=== PATIENT | male | born 1965 | race Caucasian/White ===

== ENCOUNTER 2018-08-08 16:29 | Emergency (ER) | payer OTHER ==
[~2018-08-08] VITALS: Ht 182.9 cm; Wt 131.5 kg
[2018-08-08 17:12] LABS: CALCIUM 8.4 mg/dL (8.5-10.1); POTASSIUM 3.6 mmol/L (3.5-5.1)
[2018-08-08] MEDS ORDERED: LISINOPRIL10 MG PO (18:07)
[2018-08-08 18:27] VITALS: BP 170/70
--- NOTE | 2018-08-09 13:03 | EKG ---
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 Service Technician: Maynor FINK : 1965 Requested By: Kathy Escalante Order Number: [id number] MD: Barry Carbajal Measurements Intervals [place] Rate: 78 P: 11 MN: 182 QRS: -36 QRSD: 100 T: 5 QT: 381 QTc: 434 Interpretive Statements Sinus rhythm Probable left atrial enlargement Low voltage, precordial leads Abnormal R-wave progression, early transition Left ventricular hypertrophy No previous ECG available for comparison Electronically Signed On 08-09-2018 13:03:29 CDT by Barry Carbajal [email or web address] <ELECTRONICALLY SIGNED> By: Barry Carbajal MD, [facility] 08/09/18 1303 182 1820 Barry Carbajal MD, [facility] /EPI
== END 2018-08-08 18:32 | disposition home or self-care (01) ==
LOC: M.ERS 16:29
PROVIDERS: Nurse Practitioner Family
DX: I10 Essential (primary) hypertension (principal); E11.9 Type 2 diabetes mellitus without complications; F17.210 Nicotine dependence, cigarettes, uncomplicated; Z88.5 Allergy status to narcotic agent; Z88.0 Allergy status to penicillin; Z88.8 Allergy status to other drugs, medicaments and biological substances

== ENCOUNTER 2018-11-29 14:57 | Inpatient (IN) | payer OTHER ==
[~2018-11-29] VITALS: Ht 182.9 cm; Wt 124.6 kg
[~2018-11-29 14:57] MED LIST: LISINOPRIL10 MG PO
[2018-11-29 15:00] VITALS: BP 152/96
[2018-11-29 15:34] LABS: ABSOLUTE BASOPHILS 0.1 thou/uL (0.0-0.2); ABSOLUTE EOSINOPHILS 0.2 thou/uL (0.0-0.7); ABSOLUTE LYMPHOCYTES 1.5 thou/uL (0.8-5.3); ABSOLUTE MONOCYTES 0.8 thou/uL (0.0-1.2); EOSINOPHILS 1.7 %; HEMATOCRIT 45.4 % (42.0-52.0); HEMOGLOBIN 15.7 gm/dL (14.0-18.0); LYMPHOCYTES 16.1 %; MCH 30.5 pg (26.0-34.0); MCHC 34.5 g/dL (28.0-37.0); MCV 88.4 fL (80.0-100.0); MONOCYTES 8.5 %; MPV 7.1 fl. (7.2-11.1); NUCLEATED RBCS 0 /100WBC; PLATELET COUNT* 226 thou/uL (150-400); POLYS 72.7 %; RBC 5.13 mil/uL (4.50-6.00); RDW-CV 13.9 % (10.5-14.5); WBC 9.6 thou/uL (4.0-11.0)
[2018-11-29 15:42] LABS: ANION GAP 7 mmol/L (7-16); BUN 11 mg/dL (7-18); CALCIUM 8.9 mg/dL (8.5-10.1); CHLORIDE 101 mmol/L (98-107); CO2 30 mmol/L (21-32); GLUCOSE 141 mg/dL (70-99); SODIUM 138 mmol/L (136-145)
[2018-11-29 15:46] LABS: INR 0.9; PROTIME 9.5 Seconds (9.20-11.50)
[2018-11-29 15:50] LABS: BE 2.2 mmol/L (-2 to +3); HCO3 27.4 mmol/L (22.0-26.0); PCO2 44.3 mmHg (35.0-45.0); PO2 105.3 mmHg (75.0-100.0); pH 7.409 (7.340-7.450)
[2018-11-29 15:53] LABS: ALBUMIN 3.5 g/dL (3.4-5.0); ALKALINE PHOSPHATASE 90 U/L (46-116); NT-PRO BRAIN NAT PEPTIDE 124 pg/mL (<300); PHOSPHORUS* 2.6 mg/dL (2.5-4.9); SGOT 11 U/L (15-37); SGPT 20 U/L (30-65); TOTAL BILIRUBIN 0.6 mg/dL (<0.1-1.0); TOTAL PROTEIN 7.2 g/dL (6.4-8.2); TROPONIN-I LEVEL <0.06 ng/mL (<0.06)
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
[2018-11-29 16:20] LABS: URINE BILIRUBIN NEGATIVE (Negative); URINE BLOOD NEGATIVE (Negative); URINE CLARITY CLEAR; URINE COLOR YELLOW; URINE GLUCOSE-RANDOM NEGATIVE (Negative); URINE KETONES NEGATIVE (Negative); URINE LEUKOCYTES-REFLEX NEGATIVE (Negative); URINE NITRITE-REFLEX NEGATIVE (Negative); URINE PROTEIN 1+ (Negative); URINE SPECIFIC GRAVITY 1.015 (1.005-1.030); URINE UROBILINOGEN 0.2 E.U./dl (0.2-1.0)
[2018-11-29 16:45] LABS: AMP/METHAMP Negative (Negative); BARBITURATES Negative (Negative); BENZODIAZEPINES Negative (Negative); COCAINE Negative (Negative); METHADONE Negative (Negative); OPIATES Negative (Negative); PCP Negative (Negative); THC Negative (Negative)
[2018-11-29 16:46] LABS: ESR (SEDRATE) 22 mm/hr (0-20)
--- NOTE | 2018-11-29 17:51 | NUR ---
ATTEMPTED IV STARTS X 6 IN TOTAL BY ER STAFF UNABLE TO FIND ADEQUATE IV ACCESS DR RODRIGUEZ TO ATTEMPT CENTRAL LINE PLACEMENT.
[2018-11-29 21:30] VITALS: BP 157/83
[2018-11-30] VITALS: BP 154/69
[2018-11-30 04:00] VITALS: BP 146/66
--- NOTE | 2018-11-30 05:27 | NUR ---
PT TO FLOOR APROX 2200. SEE MAR. SEE CHARTING. FALL PRECATUIONS IN PLACE. HOURLY ROUNDING FOR SAFETY.
[2018-11-30 07:30] VITALS: BP 134/73
--- NOTE | 2018-11-30 11:16 | NUR ---
MET WITH PT AND ROOMMATE/DAKSHA TO DISCUSS HOME SITUATION/DC PLANNING. PT LIVES WITH DAKSHA AND HER GIRLFRIEND AND HIS SON. PT IS INDEPENDENT AND ACTIVE. USES NO EQUIPMENT. 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 DOES NOT HAVE A PCP. GAVE PT COMMUNITY RESOURCES AND SAFETY NET CLINIC INFO. HE PLANS TO RETURN HOME AT DC. PT DOES NOT HAVE DPOA, GAVE ED AND INFO FOR THAT ALSO. WILL FOLLOW
[2018-11-30 11:26] VITALS: BP 156/79
[2018-11-30 12:40] LABS: BE -0.4 mmol/L (-2 to +3); PCO2 44.2 mmHg (35.0-45.0); PO2 72.9 mmHg (75.0-100.0); pH 7.371 (7.340-7.450)
[2018-11-30 12:49] LABS: ABSOLUTE BASOPHILS 0.1 thou/uL (0.0-0.2); ABSOLUTE EOSINOPHILS 0.1 thou/uL (0.0-0.7); ABSOLUTE LYMPHOCYTES 1.3 thou/uL (0.8-5.3); ABSOLUTE MONOCYTES 0.6 thou/uL (0.0-1.2); ABSOLUTE NEUTROPHILS 6.1 thou/uL (1.6-8.1); BASOPHILS 0.9 %; EOSINOPHILS 1.5 %; HEMOGLOBIN 14.1 gm/dL (14.0-18.0); LYMPHOCYTES 16.2 %; MCH 30.3 pg (26.0-34.0); MCHC 34.4 g/dL (28.0-37.0); MCV 88.1 fL (80.0-100.0); MONOCYTES 7.8 %; MPV 7.6 fl. (7.2-11.1); NUCLEATED RBCS 0 /100WBC; PLATELET COUNT* 217 thou/uL (150-400); POLYS 73.6 %; RBC 4.66 mil/uL (4.50-6.00); RDW-CV 13.8 % (10.5-14.5); WBC 8.2 thou/uL (4.0-11.0)
[2018-11-30 15:36] VITALS: BP 140/73
--- NOTE | 2018-11-30 17:21 | 2DMMODE ---
[place] [address] 2 D/M-MODE ECHOCARDIOGRAM Name: YSABEL MACHUCA Room: [address] IN [facility]#: [id number] Admission: 11/29/18 Attend Phys: Stepan Fontana Discharge: Date of : 69 Date of Service: 11/30/18 1721 Report #: [id number] THIS REPORT FOR: //name// APPROVED REPORT Study performed: 11/30/2018 15:06:32 EXAM: Comprehensive 2D, Doppler, and color-flow Echocardiogram Patient Location: In-Patient Room #: 230 Status: routine BSA: 2.52 HR: 72 bpm BP: 156/79 mmHg Rhythm: NSR Other Information Study Quality: Good Indications Dyspnea Chest Pain 2D Dimensions IVSd: 12.49 (7-11mm) LVOT Diam: 22.17 (18-24mm) LVDd: 47.25 mm PWd: 14.23 (7-11mm) Ascending Ao: 34.06 (22-36mm) LVDs: 33.51 (25-40mm) Aortic Root: 36.76 mm Volumes Left Atrial Volume (Systole) LA ESV Index: 23.90 mL/m2 Aortic Valve AoV Peak Nelson.: 1.47 m/s AO Peak Gr.: 8.60 mmHg LVOT Max P.71 mmHg AO Mean Gr.: 4.33 mmHg LVOT Mean P.36 mmHg LVOT Max V: 1.09 m/s AO V2 VTI: 27.98 cm LVOT Mean V: 0.71 m/s RAJANI (VTI): 3.34 cm2 LVOT V1 VTI: 24.23 cm Mitral Valve E/A Ratio: 0.97 MV Decel. Time: 221.25 [place] [address] 2 D/M-MODE ECHOCARDIOGRAM Name: YSABEL MACHUCA Room: [address]#: [id number] Admission: 11/29/18 Attend Phys: Stepan Fontana Discharge: Date of : 69 Date of Service: 11/30/18 1721 Report #: [id number] MV E Max Nelson.: 0.79 m/s MV PHT: 64.16 ms MVA (PHT): 3.43 cm2 TDI E/Lateral E': 6.58 E/Medial E': 8.78 Medial E' Nelson.: 0.09 m/s Lateral E' Nelson.: 0.12 m/s Pulmonary Valve PV Peak Nelson.: 1.09 m/s PV Peak Gr.: 4.73 mmHg Left Ventricle The left ventricle is normal size. There is normal LV segmental wall motion. Mild concentric left ventricular hypertrophy. Left ventricular systolic function is normal. The left ventricular ejection fraction is within the normal range. LVEF is 55-60%. Grade I - abnormal relaxation pattern. Right Ventricle The right ventricle is normal size. The right ventricular systolic function is normal. Atria The left atrium size is normal. The right atrium size is normal. Aortic Valve The aortic valve is normal in structure. No aortic regurgitation is present. There is no aortic valvular stenosis. Mitral Valve The mitral valve is normal in structure. Trace mitral regurgitation. No evidence of mitral valve stenosis. Tricuspid Valve The tricuspid valve is normal in structure. Unable to assess PA pressure. Trace tricuspid regurgitation. Pulmonic Valve The pulmonary valve is normal in structure. There is no pulmonic valvular regurgitation. Great Vessels The aortic root is normal in size. IVC is normal in size and collapses >50% [place] [address] 2 D/M-MODE ECHOCARDIOGRAM Name: BRIGETTEYSABEL Mcguire Room: [address]#: [id number] Admission: 11/29/18 Attend Phys: Stepan Fontana Discharge: Date of : 69 Date of Service: 11/30/18 1721 Report #: [id number] Pericardium There is no pericardial effusion. <Conclusion> The left ventricle is normal size. Mild concentric left ventricular hypertrophy. Left ventricular systolic function is normal. The left ventricular ejection fraction is within the normal range. LVEF is 55-60%. Grade I - abnormal relaxation pattern. The right ventricle is normal size. The left atrium size is normal. The aortic valve is normal in structure. The mitral valve is normal in structure. The tricuspid valve is normal in structure. IVC is normal in size and collapses >50% with inspiration. There is no pericardial effusion. There is normal LV segmental wall motion. <ELECTRONICALLY SIGNED> By: Silvino Marquez MD, FACC 11/30/18 172 20 20 Silvino Marquez MD, FACC /INF
--- NOTE | 2018-11-30 18:43 | EKG ---
[place] [address] ELECTROCARDIOGRAM REPORT Name: YSABEL MACHUCA Room: [address] ADM IN [facility].#: [id number] Admission: 11/29/18 Attend Phys: Mi Parra Discharge: Date of : 69 Report #: [id number] THIS REPORT FOR: //name// 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 : 1965 Requested By: Sandra Garcia Order Number: [id number] MD: Haris Jeffery Measurements Intervals [place] Rate: 69 P: 37 SC: 191 QRS: -34 QRSD: 98 T: 10 QT: 374 QTc: 401 Interpretive Statements Sinus rhythm Probable left atrial enlargement Left axis deviation, consider left anterior fascicular block Abnormal R-wave progression, early transition Compared to ECG 08/08/2018 18:20:36 Left-axis deviation now present Electronically Signed On 11-30-2018 18:43:32 CHANNEL MANAGER by Haris Jeffery [email or web address] <ELECTRONICALLY SIGNED> By: Haris Jeffery MD, FACC 11/30/18 1843 1500 1500 Haris Jeffery MD, [facility] /EPI
--- NOTE | 2018-11-30 18:45 | EKG ---
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 : 1965 Requested By: Santos Carrasquillo Order Number: [id number] MD: Haris Jeffery Measurements Intervals [place] Rate: 74 P: 35 [place]: 189 QRS: -34 QRSD: 100 T: 20 QT: 379 QTc: 421 Interpretive Statements Sinus rhythm Left axis deviation Compared to ECG 08/08/2018 18:20:36 Left-axis deviation now present Left ventricular hypertrophy no longer present Electronically Signed On 11-30-2018 18:45:40 [employer] by Haris Jeffery [email or web address] <ELECTRONICALLY SIGNED> By: Haris Jeffery MD, FACC 11/30/18 1845 42 42 Haris Jeffery MD, FAC /EPI
[2018-11-30 20:00] VITALS: BP 133/69
[2018-12-01] VITALS: BP 141/64
--- NOTE | 2018-12-01 04:28 | NUR ---
ASSUMED CARE OF PT AFTER REPORT AT 1930. PT A&OX4. VSS. PHYSICAL ASSESSMENT COMPLETED AND CHARTED. PT ON RA WITH 94% O2 SAT. PT TRACING SR ON TELE. PT UP WITH 1 ASSIST TO RESTROOM. PT C/O OF NECK PAIN WITH PAIN SCALE OF 8/10- PAIN MEDS GIVEN PER JAN. INSTRUCTED ON NPO POST MIDNIGHT FOR STRESS TEST TODAY. COMMUNICATES UNDERSTANDING. PLACED ON SLEEP STUDY. PT RESTED WELL ON BED. CALL LIGHT WITHIN REACH.
[2018-12-01 06:46] LABS: CALCIUM 8.8 mg/dL (8.5-10.1); CREATININE 0.9 mg/dL (0.6-1.3); POTASSIUM 4.2 mmol/L (3.5-5.1)
[2018-12-01 07:30] VITALS: BP 148/76
--- NOTE | 2018-12-01 11:01 | NUR ---
RECEIVED PT CARE 0700. HE IS ALERT AND ORIENTED X4. VSS. DIGITAL TECHNICIAN TRACING SR. HE IS UP STANDBY ASSIST X1. GAIT STEADY. AM ASSESSMENT CHARTED. MEDS GIVEN PER MAR. STRESS PART OF CARDIAC STRESS TEST COMPLETED THIS AM. ADVANCED TO CARB CONTROLLED DIET AND HE WILL COMPLETE THE RESTING PART OF HIS STRESS TEST TOMORROW. DISCUSSED PLAN OF CARE WITH DR BANDA MED STUDENT. PATIENTS FAMILY AT BEDSIDE AND UPDATED ON PLAN OF CARE. CALL LIGHT WITHIN REACH. WILL CONTINUE TO MONITOR.
[2018-12-01 11:42] VITALS: BP 141/72
[2018-12-01 15:30] VITALS: BP 149/67
[2018-12-01 19:20] VITALS: BP 150/70
[2018-12-02] VITALS (7 sets, daily range): BP systolic 134–143; BP diastolic 53–75
--- NOTE | 2018-12-02 01:01 | NUR ---
ASSUMED CARE OF PT AT 1900. PT IS ALERT AND ORIENTED. VSS. PERRSRINATH. PT IS IN SINUS RYTHM ON THE TELEMETRY. PT IS RESTING COMFORTABLY IN BED. RESPIRATIONS ARE EVEN AND NONLABORED. WILL CONTINUE TO MONITOR PT.
--- NOTE | 2018-12-02 11:56 | NUR ---
CONTINUE TO FOLLOW, MET WITH PT. STATES FEELING SOME IMPROVED. PT PLANS TO RETURN HOME AT IN. REVIEWED RESOURCE INFO GIVEN TO PT ON WED. DENIES OTHER NEEDS.
--- NOTE | 2018-12-02 16:22 | CARDNUC ---
[place] [address] CARDIAC NUCLEAR IMAGING REPORT Name: YSABEL MACHUCA Room: [address] IN [facility]#: [id number] Admission: 11/29/18 Attend Phys: Stepan Fontana Discharge: Date of : 69 Date of Service: 12/02/18 1621 Report #: [id number] THIS REPORT FOR: //name// APPROVED REPORT Imaging Protocol: Stress Tc-99m/Rest Tc-99m 2 days Study performed: 11/30/2018 13:59:00 Indication: Chest pain, Dyspnea, Fatigue Patient Location: In-Patient Room #: 230 Stress Tech: Sushma Villanueva Stress Nurse: Shannon Ohara RN NM Tech:CHASE Chiang Ht: 6 ft 0 in Wt: 296 lbs BSA: 2.52 m2 BMI: 40.14 Medical History Medical History: hypertension, diabetes Medications: none Allergies: penicillin, docusate Cardiac Risk Factors: age, hypertension, diabetes, tobacco Exercise History: Physically active Resting Data Rest SPECT myocardial perfusion imaging was performed in supine position 30 minutes following the intravenous injection of 39.1 mCi of Tc-99m Sestamibi. Time of rest injection: 754 Date: 12/02/2018 Time of rest imagin The images were gated to evaluate regional wall motion and calculate left ventricular ejection fraction. Administration Route: IV Administration Site: Other Pharmacologic Stress Pharmacologic stress test was performed by injecting Regadenoson 0.4 mg IV push over 10-15 seconds immediately followed by the intravenous injection of 35.0 mCi of Tc-99m Sestamibi. Time of stress injection: 844 Date: 12/01/2018 Time of stress imagin Administration Route: IV Administration Site: Other Gated Stress SPECT was performed 40 [place] [address] CARDIAC NUCLEAR IMAGING REPORT Name: YSABEL MACHUCA Room: [address]#: [id number] Admission: 11/29/18 Attend Phys: Stepan Fontana Discharge: Date of : 69 Date of Service: 12/02/18 1621 Report #: [id number] injection. The images were gated to evaluate regional wall motion and calculate left ventricular ejection fraction. Prone imaging was performed. Stress Test Details Stress Test: Pharmacologic stress testing performed using 0.4 mg of regadenoson per 5 mL given IV over 10 seconds. Reason for pharmacologic stress test: physical limitation. HR Max Heart Rate (APMHR): 169 bpm Resting HR: 81 bpm Target HR (85% APMHR): 143 bpm Max HR Achieved: 90 bpm % of APMHR: 53 Recovery HR: 87 bpm BP Resting BP: 126/69 mmHg Max BP: 151/86 mmHg Recovery BP: 148/78 mmHg ECG Resting ECG: Sinus Rhythm Stress ECG: Sinus Rhythm ST Change: None Arrhythmia: None Recovery ECG: Sinus Rhythm Recovery ST Change: None Recovery Arrhythmia: None Clinical Reason for Termination: Completed protocol Exercise duration: 0 min sec Exercise capacity: 1 METs The patient tolerated Lexiscan infusion without significant symptoms. Nurse Comments ok to test with one troponin per Lilia Case PRIVACY COMPLIANCE MANAGER Stress ECG Conclusion The baseline 12-lead EKG show sinus rhythm without significant ST or T wave abnormality. EKGs obtained during and post Lexiscan infusion show sinus rhythm with no significant ST or T wave changes when compared to baseline. There were no stress[place] [address] CARDIAC NUCLEAR IMAGING REPORT Name: OGLALA SIOUX,YSABEL Mcguire Room: [address]#: [id number] Admission: 11/29/18 Attend Phys: Stepan Fontana Discharge: Date of : 69 Date of Service: 12/02/18 1621 Report #: [id number] Study Quality Study: Good Artifact: No artifact Study Data At rest, the left ventricular ejection fraction was 67%.. Post stress, the left ventricular ejection was 65%.. TID = 1.00. Perfusion Myocardial perfusion images show no significant defect to suggest infarct or ischemia. Wall Motion Gated studies are technically limited. Locally LV systolic function appears normal. Nuclear Conclusion ECG Findings: negative for ischemia Clinical Findings: negative for ischemia Nuclear Findings: negative for ischemia Exercise Capacity: not assessed Left Ventricular Function: normal Risk Study: low Myocardial perfusion images show no defect to suggest infarct or ischemia. Left systolic function appears totally normal. This is a low risk study. <Conclusion> The baseline 12-lead EKG show sinus rhythm without significant ST or T wave abnormality. EKGs obtained during and post Lexiscan infusion show sinus rhythm with no significant ST or T wave changes when compared to baseline. There were no stress-induced arrhythmias. <ELECTRONICALLY SIGNED> By: Haris Jeffery MD, FACC 12/02/18 1621 162 162 Haris Jeffery MD, FACC /INF
--- NOTE | 2018-12-02 17:10 | NUR ---
ASSUMED CARE OF PATIENT AT APPROX 0900. ALERT AND ORIENTED X4. ASSESSMENT COMPLETED BY PREVIOUS NURSE AND I AGREE WITH WHAT IS CHARTED. VSS ON ROOM AIR. NO COMPLAINTS OF NAUSEA, OR SOA. PAIN HAS BEEN MANAGED WITH IV MEDICATION PATIENT HAS REFUSED ORAL PAIN MEDS. PATIENT RESTED IN BED THROUGHOUT THE SHIFT. HOURLY ROUNDS COMPLETED. PATIENT EDUCATED ON RISKS FOR FALLS AND PRECAUTIONS. CALL LIGHT IN REACH AND USES APPROPRIATELY. NURSING WILL CONTINUE TO MONITOR.
[2018-12-03 04:35] VITALS: BP 134/65
--- NOTE | 2018-12-03 05:33 | NUR ---
ASSUMED CARE OF PT AFTER REPORT AT 1930. PT A&OX4. VSS. PHYSICAL ASSESSMENT COMPLETED AND CHARTED. PT ON RA WITH 95% O2 SAT. PT RACING SR 1ST DEG ON TELE. PT UP STANDBY. PT COMPLAINED OF RASHES ON THE FACE, UPPER EXTREMITIES AND BACK- DR CANADA INFORMED WITH NEW ORDERS. PT RESTED WELL ON BED. CALL LIGHT WITHIN REACH.
[2018-12-03 05:34] LABS: ABSOLUTE BASOPHILS 0.1 thou/uL (0.0-0.2); ABSOLUTE EOSINOPHILS 0.2 thou/uL (0.0-0.7); ABSOLUTE LYMPHOCYTES 1.3 thou/uL (0.8-5.3); ABSOLUTE MONOCYTES 0.8 thou/uL (0.0-1.2); ABSOLUTE NEUTROPHILS 5.3 thou/uL (1.6-8.1); BASOPHILS 0.9 %; EOSINOPHILS 2.6 %; HEMATOCRIT 39.3 % (42.0-52.0); HEMOGLOBIN 13.7 gm/dL (14.0-18.0); LYMPHOCYTES 16.8 %; MCH 30.3 pg (26.0-34.0); MCHC 34.7 g/dL (28.0-37.0); MCV 87.3 fL (80.0-100.0); MONOCYTES 10.1 %; MPV 7.4 fl. (7.2-11.1); NUCLEATED RBCS 0 /100WBC; PLATELET COUNT* 211 thou/uL (150-400); POLYS 69.6 %; RDW-CV 13.3 % (10.5-14.5); WBC 7.6 thou/uL (4.0-11.0)
[2018-12-03 05:44] LABS: ALBUMIN 2.9 g/dL (3.4-5.0); CALCIUM 8.5 mg/dL (8.5-10.1); TOTAL BILIRUBIN 0.5 mg/dL (<0.1-1.0); TOTAL PROTEIN 6.4 g/dL (6.4-8.2)
--- NOTE | 2018-12-03 07:20 | NUR ---
CHANGE OF SHIFT, BEDSDIE REPORT GIVEN PATIENT SEEN IN BED ASLEEP ASSUMED PATIENT CARE
[2018-12-03 08:00] VITALS: BP 136/69
[2018-12-03 12:00] VITALS: BP 143/78
[2018-12-03 16:00] VITALS: BP 139/76
[2018-12-03 20:00] VITALS: BP 144/72
[2018-12-04] VITALS: BP 148/80
[2018-12-04 04:00] VITALS: BP 134/75
--- NOTE | 2018-12-04 04:46 | NUR ---
ASSUMED CARE OF PT AFTER REPORT AT 1930. PT A&OX4. VSS. PHYSICAL ASSESSMENT COMPLETED AND CHARTED. PT ON RA WITH 96% O2 SAT. PT TRACING SR/ 1ST DEG ON TELE. PT UPSTANDBY. PT C/O OF CONSTANT NECK PAIN WITH PAIN SCALE OF 7/10-PAIN MEDS GIVEN PER MAR. PT RESTED WELL ON BED. CALL LIGHT WITHIN REACH.
--- NOTE | 2018-12-04 07:25 | NUR ---
CHANGE OF SHIFT BEDSIDE REPORT GIVEN PATIENT SEEN AT BEDSIDE, IN BED ASLEEP ASSUMED PATIENT CARE
[2018-12-04 08:00] VITALS: BP 134/73
[2018-12-04 12:00] VITALS: BP 143/78
--- NOTE | 2018-12-04 15:31 | CON ---
[facility] [address] [place] [address] CONSULTATION Name: YSABEL MACHUCA Room: [address] IN .R.#: [id number] Admission: 11/29/18 Attend Phys: Mi Parra Discharge: Date of : 69 Report #: [id number] THIS REPORT FOR: //name// CC: DIANE physician/PCP Stepan Fontana DATE OF SERVICE: 12/03/2018 INFECTIOUS DISEASE CONSULTATION: REASON FOR CONSULTATION: I was asked to evaluate concerning rash in the setting of mental status change and cardiac workup. 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 He was found prone on the floor near his bed. He was encephalopathic and was brought into the Emergency Room. Predating this, patient notes being down in [facility]. A week ago, had a bite to the inner aspect of his left arm. He suspected that this was some type of insect. He did not see it. Following this, he had some discomfort in the left arm. He then developed myalgias, arthralgias, low-grade fever, mild facial rash and marked fatigue. He stated he can only drive about 30 miles and then he would have to stop and take a rest. He got back to his home and was planning to come into the hospital when he got out of bed and passed out. He does not remember having a premonition that he was going to fall. Now, has chest discomfort mostly on the left. Occasional vertigo symptoms. No change in his vision. No change in hearing. He has got some pruritic rash to his lower legs. No adenopathy noted. Still has some discomfort in the left upper arm. Denies any nausea, vomiting or diarrhea. No dysuria or frequency. No hematuria. REVIEW OF SYSTEMS: A 10-point review of systems was otherwise negative. Further workup here has been fairly unremarkable. Hemodynamically, he has remained stable. Cardiac workup is ongoing. His encephalopathy has resolved, but his facial rash has worsened. He notes that this rash is nonpruritic. No oral mucosal irritation. No prior history of skin disorder. ALLERGIES: PENICILLIN, CODEINE, COLACE. MEDICATIONS: As noted on his MAR, only on lisinopril prior to his admission. He has been on no antibiotics. He was started on fluconazole today. PAST MEDICAL HISTORY: Hypertension, diabetes. FAMILY HISTORY: [place] [address] CONSULTATION Name: BRIGETTEYSABEL Mcguire Room: [address]#: [id number] Admission: 11/29/18 Attend Phys: Mi Parra Discharge: Date of : 69 Report #: [id number] SOCIAL HISTORY: Past smoker of cigarettes. No alcohol use, occasional marijuana. No reported HIV risk factors. PHYSICAL EXAMINATION: VITAL SIGNS: He is afebrile and hemodynamically stable. GENERAL: He is alert and cooperative and pleasant, in no acute distress. He had erythematous, mildly raised rash, had some serpiginous borders across his face and up in his scalp. HEENT: Eyes, no conjunctivitis. Mouth, without mucositis. NECK: Supple, with no thyromegaly or mass. He had evidence of eczema to his left lower leg. No palpable adenopathy. LUNGS: Clear. HEART: Regular, without murmur. ABDOMEN: Soft and nontender. No hepatosplenomegaly or mass. He was obese. EXTREMITIES: Without edema, cyanosis or clubbing. Cranial nerves intact. Strength in his upper and lower extremities was normal. Deep tendon reflexes were normal in upper and lower extremities. Sensation intact to touch, normal bilaterally upper and lower extremities. NEUROLOGIC: Mentation and mood, normal. LABORATORY STUDIES: Sodium 138, potassium 4, bicarbonate 32, creatinine 1. Liver function test normal. Blood glucose levels 112-180. Hemoglobin 13.7, WBC 7.6 with normal differential, platelet count 211,000. Sedimentation rate 22, CRP 6.9. Blood cultures negative. Drug screen negative. Troponin negative. EF on his echocardiogram 55-60%. BNP 123. MRI scan of the head, small vessel disease, nothing acute. CT scan of the chest is negative. IMPRESSION: A 53-year-old with acute change in mental status and a syncopal episode, would be concerned about insect related process contributing here. There is no evidence of conduction issues. Cardiac evaluation so far has been negative. Not a typical rash for Ehrlichia, [place] spotted fever or Lyme. It is possible this could be unrelated, however, time course with the facial rash fits with the time that he started to get sick. No evidence of urinary tract infection, bacteremia or pneumonia. Etiology of this process would either be atypical bacterial or viral. However, all of his laboratory studies have been within normal limits. RECOMMENDATION: We will continue with doxycycline. Check tick-borne serologies, use Lamisil cream. I do not think this is Luz, so we will discontinue the fluconazole. If the rash does not begin to fade then would have Dermatology assist with skin biopsy. <ELECTRONICALLY SIGNED> By: Joby Carlson MD 12/04/18 1531 1728 [id number] Carlson MD /alonzo
[2018-12-04 16:00] VITALS: BP 157/82
[2018-12-04 20:00] VITALS: BP 146/71
[2018-12-05] VITALS: BP 142/58
[2018-12-05 04:00] VITALS: BP 123/63
--- NOTE | 2018-12-05 05:09 | NUR ---
ASSUMED CARE OF PT AFTER REPORT AT 1930. PT A&OX4. VSS. PHSYICAL ASSESSMENT COMPLETED AND CHARTED. PT ON RA WITH 96% O2 SAT. PT TRACING SR ON TELE. PT UP STANDBY TO RESTROOM. PT C/O OF CONSTANT NECK PAIN-PAIN MEDS GIVEN PER JAN. DENIES CHEST PAIN OR SOA. PT RESTED WELL ON BED. HOURLY ROUNDING OBSERVED. CALL LIGHT WITHIN REACH. BED IN LOW POSITION.
[2018-12-05 07:30] VITALS: BP 114/54
[2018-12-05 11:04] VITALS: BP 114/54
[2018-12-05 12:03] VITALS: BP 149/71
[2018-12-05] MEDS ORDERED: CYCLOBENZAPRINE10 MG PO (12:54)
[2018-12-05] MEDS ORDERED: CLOTRIMAZOLE 1%15 G1 TOP (12:54)
[2018-12-05] MEDS ORDERED: TRIAMCINOLONE A80 G2 TOP (12:54)
[2018-12-05] MEDS ORDERED: LISINOPRIL10 MG PO (12:54)
[2018-12-05] MEDS ORDERED: OXYCODONE HCL15 MG PO (12:54)
[2018-12-05] MEDS ORDERED: DOXYCYCLINE 10100 MG PO (13:50)
--- NOTE | 2018-12-05 16:11 | NUR ---
RECEIVED DISCHARGE ORDERS PER DR CANADA. INFECTIOUS DISEASE OK WITH DC TODAY. NEW SCRIPTS GIVEN WITH MED INFORMATION SHEETS. EDUCATED THE PATIENT AND HIS DAUGHTER ON F/U APPT WITH CARDIOLOGY, INFECTIOUS DISEASE, AND PRIMARY. CONTACT INFORMATION GIVEN FOR A PRIMARY DR IN [place]. PATIENT VERBALIZED UNDERSTANDING. 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 CENTRAL LINE DISCONTINUED PER CHRISTOPH NOBLE. EDUCATED ON SIGNS AND SYMPTOMS TO MONITOR AND WATCH FOR. PAIN MEDICATION GIVEN PRIOR TO DISCHARGING PER PATIENTS REQUEST. PATIENT LEAVING VIA WHEELCHAIR ACCOMPANIED BY NURSING STAFF AND HIS DAUGHTER FOR TRANSPORTATION. ALL HIS BELONGINGS ARE PACKED AND LEAVING WITH THE PATIENT. NO QUESTIONS OR CONCERNS AT DISCHARGE.
== END 2018-12-05 16:15 | disposition home or self-care (01) | DRG 313 ==
LOC: M.ERS 14:57 → M.TBA-ER 18:10 → M.2W 18:10
PROVIDERS: Personal Emergency Response Attendant; ADMIT Internal Medicine
PROC: 02HV33Z Insertion of Infusion Device into Superior Vena Cava, Percutaneous Approach (ICD-10-PCS; principal; 2018-11-29)
DX: R07.9 Chest pain, unspecified (principal); G93.41 Metabolic encephalopathy; I10 Essential (primary) hypertension; E11.9 Type 2 diabetes mellitus without complications; B34.9 Viral infection, unspecified; R21 Rash and other nonspecific skin eruption; E66.01 Morbid (severe) obesity due to excess calories; M50.321 Other cervical disc degeneration at C4-C5 level; M50.322 Other cervical disc degeneration at C5-C6 level; S40.862A Insect bite (nonvenomous) of left upper arm, initial encounter; W57.XXXA Bitten or stung by nonvenomous insect and other nonvenomous arthropods, initial encounter; W18.39XA Other fall on same level, initial encounter; Y93.89 Activity, other specified; Y92.89 Other specified places as the place of occurrence of the external cause; Y99.8 Other external cause status; Z68.37 Body mass index [BMI] 37.0-37.9, adult; Z86.711 Personal history of pulmonary embolism; Z87.891 Personal history of nicotine dependence; Z79.899 Other long term (current) drug therapy; Z88.0 Allergy status to penicillin; Z88.5 Allergy status to narcotic agent; Z88.8 Allergy status to other drugs, medicaments and biological substances

== ENCOUNTER 2019-08-27 19:46 | Observation (INO) | payer OTHER ==
[~2019-08-27] VITALS: Ht 182.9 cm; Wt 132.1 kg
[~2019-08-27 19:46] MED LIST changes: +CLOTRIMAZOLE 1%15 G1 TOP; +CYCLOBENZAPRINE10 MG PO; +DOXYCYCLINE 10100 MG PO; +OXYCODONE HCL15 MG PO; +TRIAMCINOLONE A80 G2 TOP
[2019-08-27 19:51] VITALS: BP 199/90
[2019-08-27] MEDS ORDERED: NOHOMEMEDICATIONS (19:55)
[2019-08-27 20:18] LABS: ABSOLUTE BASOPHILS 0.1 thou/uL (0.0-0.2); ABSOLUTE EOSINOPHILS 0.2 thou/uL (0.0-0.7); ABSOLUTE MONOCYTES 0.7 thou/uL (0.0-1.2); ABSOLUTE NEUTROPHILS 8.4 thou/uL (1.6-8.1); BASOPHILS 0.9 %; EOSINOPHILS 1.5 %; HEMATOCRIT 43.6 % (42.0-52.0); HEMOGLOBIN 15.5 gm/dL (14.0-18.0); LYMPHOCYTES 17.6 %; MCH 30.7 pg (26.0-34.0); MCHC 35.5 g/dL (28.0-37.0); MCV 86.6 fL (80.0-100.0); MONOCYTES 5.9 %; MPV 7.6 fl. (7.2-11.1); NUCLEATED RBCS 0 /100WBC; PLATELET COUNT* 228 thou/uL (150-400); POLYS 74.1 %; RBC 5.04 mil/uL (4.50-6.00); RDW-CV 13.7 % (10.5-14.5); WBC 11.3 thou/uL (4.0-11.0)
[2019-08-27 20:26] LABS: ANION GAP 9 mmol/L (7-16); BUN 17 mg/dL (7-18); CALCIUM 8.1 mg/dL (8.5-10.1); CHLORIDE 102 mmol/L (98-107); CO2 25 mmol/L (21-32); CREATININE 1.8 mg/dL (0.6-1.3); GLUCOSE 282 mg/dL (70-99); POTASSIUM 4.1 mmol/L (3.5-5.1); SODIUM 136 mmol/L (136-145)
[2019-08-27 20:29] LABS: APTT 25.2 Seconds (25.0-31.3); PROTIME 9.8 Seconds (9.20-11.50)
[2019-08-27 20:39] LABS: ALBUMIN 3.2 g/dL (3.4-5.0); ALKALINE PHOSPHATASE 89 U/L (46-116); NT-PRO BRAIN NAT PEPTIDE 224 pg/mL (<300); SGPT 26 U/L (30-65); TOTAL BILIRUBIN 0.3 mg/dL (<0.1-1.0); TOTAL PROTEIN 6.8 g/dL (6.4-8.2); TROPONIN-I LEVEL <0.06 ng/mL (<0.06)
[2019-08-27 21:06] LABS: SGOT 14 U/L (15-37)
[2019-08-27 21:43] LABS: URINE BILIRUBIN NEGATIVE (Negative); URINE BLOOD NEGATIVE (Negative); URINE CLARITY CLEAR; URINE COLOR YELLOW; URINE GLUCOSE-RANDOM 3+ (Negative); URINE KETONES TRACE (Negative); URINE LEUKOCYTES NEGATIVE (Negative); URINE NITRITE NEGATIVE (Negative); URINE PROTEIN 1+ (Negative)
[2019-08-28] VITALS (8 sets, daily range): BP systolic 103–178; BP diastolic 56–84
[2019-08-28 04:37] LABS: HEMATOCRIT 41.3 % (42.0-52.0); HEMOGLOBIN 14.3 gm/dL (14.0-18.0); MCHC 34.6 g/dL (28.0-37.0); MCV 86.8 fL (80.0-100.0); MPV 7.8 fl. (7.2-11.1); RBC 4.76 mil/uL (4.50-6.00); RDW-CV 13.6 % (10.5-14.5)
[2019-08-28 04:53] LABS: CALCIUM 8.2 mg/dL (8.5-10.1); POTASSIUM 3.9 mmol/L (3.5-5.1); TOTAL BILIRUBIN 0.3 mg/dL (<0.1-1.0); TOTAL PROTEIN 6.4 g/dL (6.4-8.2)
--- NOTE | 2019-08-28 06:31 | NUR ---
PT RECIEVED FROM ED IN 215. SAT MAINTAINED IN RA. ALERT AND ORIENTED X4. CALL LIGHT WITHIN REACH AND BED IN LOW POSITION. DENIES SOB. HOURLY ROUNDING DONE FOR PT SAFETY.
--- NOTE | 2019-08-28 10:42 | NUR ---
Pt is A&O. Resides at home with friends. Independent. No DME. No hx of HH or SNF. Goal is home at hi, following.
--- NOTE | 2019-08-28 16:22 | EKG ---
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: : 1965 Requested By: Dorinda Rocha Order Number: [id number] MD: Silvino Marquez Measurements Intervals [place] Rate: 84 P: 30 [place]: 181 QRS: -37 QRSD: 97 T: 18 QT: 362 QTc: 428 Interpretive Statements Sinus rhythm Probable left atrial enlargement Abnormal R-wave progression, early transition Left ventricular hypertrophy Baseline wander in lead(s) V2 Compared to ECG 11/29/2018 19:43:30 Left ventricular hypertrophy now present Electronically Signed On 08-28-2019 16:22:36 CDT by Silvino Marquez [email or web address] <ELECTRONICALLY SIGNED> By: Silvino Marquez MD, FACC 08/28/19 1622 17 17 Silvino Marquez MD, FAC /EPI
--- NOTE | 2019-08-28 18:34 | NUR ---
PT VSS, SINUS RHYTHM WITH 1ST DEGREE AV BLOCK ON TELE. A&OX4. HIGH FALL RISK DUE TO DIZZINESS ON ADMIT. HOURLY ROUNDING PERFORMED, POSSESSIONS AND CALL LIGHT WITHIN REACH. PT REPORTS RIGHT SHOULDER PAIN, AND TINGLING IN RIGHT ARM. PT REFUSED SCDS.
--- NOTE | 2019-08-28 19:16 | NUR ---
THIS RN HAS REVIEWED AND AGREES WITH THE ASSESSMENT AND CHARTING OF BRADEN NOBLE.
[2019-08-29 04:00] VITALS: BP 119/61
--- NOTE | 2019-08-29 06:38 | NUR ---
PT CARE ASSUMED AT 1930. SAT MAINTAINED IN RA. ALERT AND ORIENTED X4. CALL LIGHT WITHIN REACH AND BED IN LOW POSITION. C/O PAIN, MEDICATION PER EMAR. HOURLY ROUNDING DONE FOR PT SAFETY.
[2019-08-29 07:45] VITALS: BP 121/61
[2019-08-29] MEDS ORDERED: GLUCOPHAGE500 MG PO (10:31)
[2019-08-29] MEDS ORDERED: HYDROCHLOROTHIA25 M1 PO (10:31)
[2019-08-29] MEDS ORDERED: LISINOPRIL10 MG PO (10:31)
[2019-08-29 10:43] VITALS: BP 121/61
[2019-08-29 12:17] VITALS: BP 121/61
--- NOTE | 2019-08-29 12:18 | NUR ---
PT REMAINED ALERT AND ORIENTED. PT GIVEN DISCHARGE INFORMATION, CARE NOTES, AND PRESCRIPTIONS CALLED INTO PHARMACY. IV REMOVED. PT BELONGINGS GATHERED. FALL RISK PRECAUTIONS IN PLACE. HOURLY ROUNDING COMPLETED. PT LEFT VIA WHEELCHAIR WITH NURSING STAFF TO HOME.
[2019-09-01 10:14] LABS: GLYCOHEMOGLOBIN (HGB A1C) 8.9 % (4.8-5.6)
== END 2019-08-29 12:24 | disposition home or self-care (01) ==
LOC: M.ERS 19:46 → M.2W 21:27 → M.TBA-ER 21:27 → M.2W 21:27
PROVIDERS: Internal Medicine; Nurse Practitioner Family; ADMIT Family Medicine
DX: I16.0 Hypertensive urgency (principal); N17.0 Acute kidney failure with tubular necrosis; E11.9 Type 2 diabetes mellitus without complications; E86.9 Volume depletion, unspecified; M19.011 Primary osteoarthritis, right shoulder; I10 Essential (primary) hypertension; F17.210 Nicotine dependence, cigarettes, uncomplicated; E66.9 Obesity, unspecified; Z68.39 Body mass index [BMI] 39.0-39.9, adult; Z79.899 Other long term (current) drug therapy

== ENCOUNTER 2019-08-30 15:05 | Inpatient (IN) | payer OTHER ==
[~2019-08-30] VITALS: Ht 182.9 cm; Wt 116.1 kg
[~2019-08-30 15:05] MED LIST changes: +GLUCOPHAGE500 MG PO; +HYDROCHLOROTHIA25 M1 PO; +NOHOMEMEDICATIONS
[2019-08-30 15:07] VITALS: BP 194/103
[2019-08-30 16:01] LABS: ABSOLUTE BASOPHILS 0.1 thou/uL (0.0-0.2); ABSOLUTE EOSINOPHILS 0.1 thou/uL (0.0-0.7); ABSOLUTE LYMPHOCYTES 1.6 thou/uL (0.8-5.3); ABSOLUTE MONOCYTES 0.8 thou/uL (0.0-1.2); ABSOLUTE NEUTROPHILS 9.3 thou/uL (1.6-8.1); BASOPHILS 0.9 %; EOSINOPHILS 0.9 %; HEMATOCRIT 46.5 % (42.0-52.0); LYMPHOCYTES 13.3 %; MCH 30.5 pg (26.0-34.0); MCHC 35.5 g/dL (28.0-37.0); MCV 85.9 fL (80.0-100.0); MONOCYTES 6.7 %; MPV 7.7 fl. (7.2-11.1); NUCLEATED RBCS 0 /100WBC; PLATELET COUNT* 227 thou/uL (150-400); POLYS 78.2 %; RBC 5.42 mil/uL (4.50-6.00); RDW-CV 13.7 % (10.5-14.5); WBC 11.8 thou/uL (4.0-11.0)
[2019-08-30 16:04] LABS: HEMOGLOBIN 16.5 gm/dL (14.0-18.0)
[2019-08-30 16:09] LABS: URINE BILIRUBIN NEGATIVE (Negative); URINE BLOOD NEGATIVE (Negative); URINE CLARITY CLEAR; URINE COLOR YELLOW; URINE GLUCOSE-RANDOM NEGATIVE (Negative); URINE KETONES NEGATIVE (Negative); URINE LEUKOCYTES-REFLEX NEGATIVE (Negative); URINE NITRITE-REFLEX NEGATIVE (Negative); URINE PROTEIN NEGATIVE (Negative); URINE SPECIFIC GRAVITY 1.015 (1.005-1.030); URINE UROBILINOGEN 0.2 E.U./dl (0.2-1.0)
[2019-08-30 16:14] LABS: CALCIUM 9.3 mg/dL (8.5-10.1); POTASSIUM 3.9 mmol/L (3.5-5.1)
[2019-08-30 16:16] LABS: PROTIME 9.8 Seconds (9.20-11.50)
[2019-08-30 16:24] LABS: ALBUMIN 3.5 g/dL (3.4-5.0); TOTAL BILIRUBIN 0.3 mg/dL (<0.1-1.0); TOTAL PROTEIN 7.3 g/dL (6.4-8.2)
[2019-08-30 18:19] VITALS: BP 158/85
[2019-08-30 18:50] VITALS: BP 125/70
[2019-08-31] VITALS: BP 174/89
[2019-08-31 08:00] VITALS: BP 124/80
--- NOTE | 2019-08-31 13:22 | EKG ---
[place] [address] ELECTROCARDIOGRAM REPORT Name: YSABEL MACHUCA Room: [address] ADM IN ..#: [id number] Admission: 08/30/19 Attend Phys: Mi Parra Discharge: Date of : 69 Report #: [id number] THIS REPORT FOR: //name// [facility] ED Test Date: 2019-08-30 Test Time: 15:53:25 Pat Name: YSABEL MACHUCA Department: Room: [facility] Gender: M Electronic Technician: [facility] : 1965 Requested By: Waldemar Drake Order Number: [id number] MD: Haris Jeffery Measurements Intervals [place] Rate: 86 P: 37 MO: 182 QRS: -34 QRSD: 101 T: 8 QT: 349 QTc: 418 Interpretive Statements Sinus rhythm Low voltage, precordial leads Left anterior fascicular block Abnormal R-wave progression, late transition Left ventricular hypertrophy, by voltage Compared to ECG 08/27/2019 20:18:45 Low QRS voltage now present Electronically Signed On 08-31-2019 13:21:58 CDT by Haris Jeffery [email or web address] <ELECTRONICALLY SIGNED> By: Haris Jeffery MD, FACC 08/31/19 1321 1553 1553 Haris Jeffery MD, FACC /EPI
[2019-08-31 15:00] VITALS: BP 143/75
[2019-08-31 22:46] VITALS: BP 140/68
[2019-09-01 12:08] VITALS: BP 140/68
[2019-09-01] MEDS ORDERED: FLEXERIL PO ×2 (13:15→13:33)
[2019-09-01] MEDS ORDERED: NEURONTIN 300M300 M2 PO (13:15)
[2019-09-01 14:16] VITALS: BP 140/68
== END 2019-09-01 14:00 | disposition home or self-care (01) | DRG 552 ==
LOC: M.ERS 15:05 → M.TBA-ER 17:25 → M.3W 17:25 → M.ERS 18:21 → M.3W 18:33
PROVIDERS: Emergency Medicine; ADMIT Internal Medicine
DX: M54.16 Radiculopathy, lumbar region (principal); I10 Essential (primary) hypertension; G89.29 Other chronic pain; F12.90 Cannabis use, unspecified, uncomplicated; M54.5 Low back pain; E11.65 Type 2 diabetes mellitus with hyperglycemia; E66.9 Obesity, unspecified; M19.90 Unspecified osteoarthritis, unspecified site; E11.40 Type 2 diabetes mellitus with diabetic neuropathy, unspecified; Z93.2 Ileostomy status; Z93.3 Colostomy status; Z88.6 Allergy status to analgesic agent; Z88.1 Allergy status to other antibiotic agents; Z88.0 Allergy status to penicillin; Z88.2 Allergy status to sulfonamides; Z88.8 Allergy status to other drugs, medicaments and biological substances; Z68.34 Body mass index [BMI] 34.0-34.9, adult; Z79.899 Other long term (current) drug therapy

== ENCOUNTER 2019-09-05 12:17 | Emergency (ER) | payer OTHER ==
[~2019-09-05] VITALS: Ht 182.9 cm; Wt 129.7 kg
[~2019-09-05 12:17] MED LIST changes: +FLEXERIL PO; +NEURONTIN 300M300 M2 PO
[2019-09-05 13:32] VITALS: BP 197/101
== END 2019-09-05 13:33 | disposition short-term general hospital (02) ==
LOC: M.ERS 12:17
DX: S49.81XA Other specified injuries of right shoulder and upper arm, initial encounter (principal); S19.9XXA Unspecified injury of neck, initial encounter; I10 Essential (primary) hypertension; E11.9 Type 2 diabetes mellitus without complications; F17.200 Nicotine dependence, unspecified, uncomplicated; Z88.1 Allergy status to other antibiotic agents; Z88.5 Allergy status to narcotic agent; Z88.0 Allergy status to penicillin; Z88.2 Allergy status to sulfonamides; Z88.8 Allergy status to other drugs, medicaments and biological substances; V59.9XXA Occupant (driver) (passenger) of pick-up truck or van injured in unspecified traffic accident, initial encounter; Y93.I9 Activity, other involving external motion; Y92.89 Other specified places as the place of occurrence of the external cause; Y99.8 Other external cause status

== ENCOUNTER 2019-10-30 02:55 | Inpatient (IN) | payer OTHER ==
[~2019-10-30] VITALS: Ht 182.9 cm; Wt 140.2 kg
[2019-10-30 03:10] VITALS: BP 182/87
[2019-10-30 04:18] LABS: ABSOLUTE EOSINOPHILS 0.1 thou/uL (0.0-0.7); ABSOLUTE LYMPHOCYTES 1.2 thou/uL (0.8-5.3); ABSOLUTE MONOCYTES 1.4 thou/uL (0.0-1.2); ABSOLUTE NEUTROPHILS 7.2 thou/uL (1.6-8.1); BASOPHILS 0.5 %; EOSINOPHILS 1.2 %; HEMATOCRIT 41.5 % (42.0-52.0); HEMOGLOBIN 14.5 gm/dL (14.0-18.0); LYMPHOCYTES 12.3 %; MCH 30.2 pg (26.0-34.0); MCHC 34.9 g/dL (28.0-37.0); MCV 86.5 fL (80.0-100.0); MONOCYTES 14.4 %; MPV 7.8 fl. (7.2-11.1); NUCLEATED RBCS 0 /100WBC; PLATELET COUNT* 181 thou/uL (150-400); POLYS 71.6 %; RDW-CV 13.6 % (10.5-14.5)
[2019-10-30 04:25] LABS: CREATININE 1.1 mg/dL (0.6-1.3); POTASSIUM 3.6 mmol/L (3.5-5.1)
[2019-10-30 04:30] LABS: ALBUMIN 3.4 g/dL (3.4-5.0); TOTAL BILIRUBIN 0.8 mg/dL (<0.1-1.0); TOTAL PROTEIN 7.3 g/dL (6.4-8.2)
[2019-10-30 04:33] LABS: INFLUENZA A ANTIGEN Negative (Negative); INFLUENZA B ANTIGEN Negative (Negative)
[2019-10-30 05:25] VITALS: BP 135/56
[2019-10-30 05:30] VITALS: BP 143/77
--- NOTE | 2019-10-30 06:10 | NUR ---
PT ADMITTED TO ROOM 213 AT 0530 FOR EXACERBATION COPD, HYPOXIA, UPPER RESPIRATORY INFECTION. PT ON 2 LITERS PER NASAL CANULA WITH O2 SAT OF 95%. PT RECIEVED IV MORPHINE PRIOR TO COMING TO FLOOR FOR REPORT OF HEADACHE. PT ORIENTED TO ROOM, BED CONTROLS AND CALL LIGHT.
--- NOTE | 2019-10-30 06:41 | NUR ---
SPOKE TO DR CRUMP AND REPORTED PT HAVING HEADACHE. RECIEVED ORDER FOR PRN TYLENOL AND PRN TYLENOL #3. ORDER FOR TYLENOL #3 NOT ENTERED DUE TO CODIENE ALLERGY FLAGGED ON COMPUTER.
[2019-10-30 08:00] VITALS: BP 116/64
[2019-10-30 12:51] VITALS: BP 130/80
[2019-10-30 14:44] LABS: URINE BILIRUBIN NEGATIVE (Negative); URINE BLOOD NEGATIVE (Negative); URINE CLARITY HAZY; URINE COLOR YELLOW; URINE GLUCOSE-RANDOM 3+ (Negative); URINE KETONES 1+ (Negative); URINE LEUKOCYTES-REFLEX NEGATIVE (Negative); URINE NITRITE-REFLEX NEGATIVE (Negative); URINE PROTEIN 1+ (Negative); URINE SPECIFIC GRAVITY >= 1.030 (1.005-1.030); URINE UROBILINOGEN 0.2 E.U./dl (0.2-1.0)
[2019-10-30 14:58] LABS: SQUAMOUS 4-10 Moderate /LPF (0-3)
[2019-10-30 14:59] LABS: BACTERIA-REFLEX None Seen /HPF (None Seen); CASTS None Seen /LPF (None Seen); CRYSTALS None Seen /LPF (None Seen); MUCUS 4-6 Moderate strn/LPF (None Seen); URINE RBC None Seen /HPF (0-2); URINE WBC-REFLEX 0-5 Rare /HPF (0-5)
--- NOTE | 2019-10-30 15:51 | NUR ---
Pt is A&O. Resides at home with his son. Active and independent. No DME. Hx of HH post surgery. No hx of SNF. Goal is home at dc, no needs anticipated. Following.
--- NOTE | 2019-10-30 18:53 | NUR ---
ASSUMED PT CARE REPORT RECEIVED FROM NURSE. PT IS AOX4 ON 2 L NC. VSS. ACCUCHECK. PT GOT A SHOWER TODAY. PNEUMONIA WORK UP STARTED ORDERED. UA SAMPLE SENT TO LAB.PT HAS NO COMPLAINT. HOB KEPT ELEVATED AT ALL TIME. BREATHING TREATMENT GIVEN SCHEDULED. IV ABX. CALL LIGHT AT REACH
[2019-10-30 19:30] VITALS: BP 125/65
[2019-10-31] VITALS: BP 97/47
[2019-10-31 04:32] VITALS: BP 121/65
[2019-10-31 04:57] LABS: HEMATOCRIT 37.1 % (42.0-52.0); MCH 30.2 pg (26.0-34.0); MCV 86.3 fL (80.0-100.0); MPV 7.1 fl. (7.2-11.1); RBC 4.3 mil/uL (4.50-6.00); RDW-CV 13.6 % (10.5-14.5); WBC 11.8 thou/uL (4.0-11.0)
[2019-10-31 05:16] LABS: CALCIUM 8.5 mg/dL (8.5-10.1); CREATININE 1.1 mg/dL (0.6-1.3); MAGNESIUM 2.1 mg/dL (1.8-2.4); POTASSIUM 4.2 mmol/L (3.5-5.1)
[2019-10-31 08:00] VITALS: BP 140/69
--- NOTE | 2019-10-31 14:42 | NUR ---
PATIENT TRANSFERRED TO ROOM 316 FROM [facility]. REPORT RECEIVED FROM AIDE CHAVEZ. ALERT AND ORIENTED X 4. FAMILY AT BEDSIDE. IV SL. NO COMPLAINTS OF AT THIS TIME. [address] FAN PROVIDED. AGREE WITH AM CHARTED ASSESSMENT.
--- NOTE | 2019-10-31 14:45 | NUR ---
ASSUMED PT CARE REPORT RECEIVED FROM NURSE PT IS AOX4. ON 2 L NC. SR ON DIRECTOR AUTO . ACCUCHECK. IV ABX GIVEN. COMPLAINS OF PAIN. PAIN MEDICINE GIVEN. SOA. HOB ELEVATED. CHANGED TO MEDSURG STATUS. TRANSFER ORDERED. PT TRANSFERED TO [address] [place] [address] AT 1430 ON WHEELCHAIR ACCOMPANIED BY NURSE STAFF AND FAMILY. REPORT GIVEN TO [facility] NURSE
[2019-10-31 21:00] VITALS: BP 131/66
--- NOTE | 2019-11-01 06:09 | NUR ---
PATIENT SLEPT MOST OF THE NIGHT. PATIENT WAS GIVEN ONE TIME DOSE OF MORPINE FOR PAIN. IV REMAINS SALINE LOCKED. PATIENT IS POSSIBLY GOING HOME TODAY. WILL CONTINUE TO MONITOR.
[2019-11-01 08:00] VITALS: BP 126/72
[2019-11-01] MEDS ORDERED: MEDROL DOSPAK21 TA1 PO (12:48)
[2019-11-01] MEDS ORDERED: MUCINEX600 MG PO (12:48)
[2019-11-01] MEDS ORDERED: CEFDINIR300 MG PO (12:54)
[2019-11-01] MEDS ORDERED: LANTUS SUBQ (12:55)
[2019-11-01] MEDS ORDERED: PROAIR HFA8.5 GM INH (13:00)
[2019-11-01] MEDS ORDERED: ATROVENT HFA14 GM INH (13:00)
[2019-11-01 13:14] VITALS: BP 126/72
--- NOTE | 2019-11-01 14:23 | NUR ---
PATIENT ON RA THIS SHIFT, 02 SAT 94%. NO COMPLAINTS OF PAIN. IV DC'D. ONE TIME DOSE PO LASIX GIVEN PER JAN ORDERS. PATIENT UP AD MARISSA WITHOUDT DIFFICULTY. VERBALIZED UNDERSTANDING OF PAPEWORK, SCRIPTS SENT TO PHARMACY BY PHYSICIAN. PATIENT TAKEN OUT VIA WHEELCHAIR WITH ALL BELONGINGS.
== END 2019-11-01 14:26 | disposition home or self-care (01) | DRG 871 ==
LOC: M.ERS 02:55 → M.2W 05:12 → M.TBA-ER 05:12 → M.3W 05:12 → M.2W 05:37 → M.3W 10-31 14:26
PROVIDERS: Emergency Medicine; Internal Medicine; ADMIT Family Medicine
DX: A41.9 Sepsis, unspecified organism (principal); J15.6 Pneumonia due to other Gram-negative bacteria; J96.01 Acute respiratory failure with hypoxia; J44.1 Chronic obstructive pulmonary disease with (acute) exacerbation; J44.0 Chronic obstructive pulmonary disease with (acute) lower respiratory infection; I12.9 Hypertensive chronic kidney disease with stage 1 through stage 4 chronic kidney disease, or unspecified chronic kidney disease; F17.210 Nicotine dependence, cigarettes, uncomplicated; E11.22 Type 2 diabetes mellitus with diabetic chronic kidney disease; F12.90 Cannabis use, unspecified, uncomplicated; I16.0 Hypertensive urgency; G89.29 Other chronic pain; E11.65 Type 2 diabetes mellitus with hyperglycemia; T38.0X5A Adverse effect of glucocorticoids and synthetic analogues, initial encounter; Z93.2 Ileostomy status; Z93.3 Colostomy status; Z88.6 Allergy status to analgesic agent; Z88.1 Allergy status to other antibiotic agents; Z88.0 Allergy status to penicillin; Z88.2 Allergy status to sulfonamides; Z88.8 Allergy status to other drugs, medicaments and biological substances; Y92.89 Other specified places as the place of occurrence of the external cause

== ENCOUNTER 2020-09-10 10:24 | Emergency (ER) | payer OTHER ==
[~2020-09-10] VITALS: Ht 182.9 cm; Wt 136.1 kg
[~2020-09-10 10:24] MED LIST changes: +ATROVENT HFA14 GM INH; +CEFDINIR300 MG PO; +LANTUS SUBQ; +MEDROL DOSPAK21 TA1 PO; +MUCINEX600 MG PO; +PROAIR HFA8.5 GM INH
[2020-09-10] MEDS ORDERED: CENTANY30 GM TOP (11:03)
[2020-09-10] MEDS ORDERED: NAPROSYN500 MG PO (11:03)
[2020-09-10] MEDS ORDERED: DOXYCYCLINE 10100 MG PO (11:03)
[2020-09-10 11:15] VITALS: BP 198/115
== END 2020-09-10 11:16 | disposition home or self-care (01) ==
LOC: M.ERS 10:24
DX: L03.114 Cellulitis of left upper limb (principal); L98.498 Non-pressure chronic ulcer of skin of other sites with other specified severity; I10 Essential (primary) hypertension; E11.9 Type 2 diabetes mellitus without complications; J44.9 Chronic obstructive pulmonary disease, unspecified; Z88.1 Allergy status to other antibiotic agents; Z88.0 Allergy status to penicillin; Z88.2 Allergy status to sulfonamides; Z88.5 Allergy status to narcotic agent; Z88.8 Allergy status to other drugs, medicaments and biological substances